=== PATIENT | female | born 1995 | race African-American/Black ===

== ENCOUNTER 2019-10-31 10:42 | Emergency (ER) | payer MEDICAID ==
[~2019-10-31] VITALS: Ht 170.2 cm; Wt 85.0 kg
[2019-10-31 10:51] VITALS: BP 98/75
== END 2019-10-31 15:48 | disposition left against medical advice (07) ==
LOC: ER 10:42
DX: Z53.21 Procedure and treatment not carried out due to patient leaving prior to being seen by health care provider (principal)